=== PATIENT | female | born 1935 | race Caucasian/White ===

== ENCOUNTER 2022-02-18 19:44 | Inpatient (IN) | payer OTHER, MEDICAID ==
[~2022-02-18] VITALS: Ht 154.9 cm; Wt 49.0 kg
[2022-02-18 19:44] VITALS: BP_SYST 178
[2022-02-18 20:14] LABS: BASOPHILS % (AUTO) 0.4 % (0.0-2.0); EOSINOPHILS % (AUTO) 0.6 % (0.0-4.0); HEMATOCRIT 34.5 % (36-48); HEMOGLOBIN 11.6 g/dL (12.0-16.0); LYMPHOCYTES # (AUTO) 1.2 K/uL (1.0-5.5); LYMPHOCYTES % (AUTO) 20.4 % (20.5-51.5); MEAN CORPUSCULAR HEMOGLOBIN 30 pg (27-31); MEAN CORPUSCULAR HGB CONC 34 % (32-36); MEAN CORPUSCULAR VOLUME 90 fL (79.0-98.0); MONOCYTES # (AUTO) 0.6 K/uL (0.0-1.0); MONOCYTES % (AUTO) 10.2 % (1.7-9.3); NEUTROPHILS # (AUTO) 3.9 K/uL (1.8-7.7); NEUTROPHILS % (AUTO) 68.4 % (40.0-70.0); PLATELET COUNT (AUTO) 222 K/uL (130-430); RED BLOOD CELL COUNT(AUTO) 3.83 MIL/uL (4.2-6.2); RED CELL DISTRIBUTION WIDTH 12.5 % (9.0-15.0); WHITE BLOOD COUNT (AUTO) 5.7 K/uL (4.8-10.8)
[2022-02-18 20:22] LABS: INR 1.1 (0.8-1.2); PROTHROMBIN TIME 11.4 SECS (9.5-12.5)
[2022-02-18 20:33] LABS: ANION GAP 7 (5-15); CALCIUM 7.7 mg/dL (8.4-11.0); CHLORIDE 107 mmol/L (98-107); CREATININE 0.81 mg/dL (0.55-1.30); GLUCOSE 107 mg/dL (70-99); POTASSIUM 3.9 mmol/L (3.5-5.1); SODIUM SERUM 140 mmol/L (136-145); UREA NITROGEN, BLOOD 12 mg/dL (8-21)
[2022-02-18 20:41] LABS: ALANINE AMINOTRANSFERASE 18 U/L (12-78); ALBUMIN 2.2 g/dL (3.4-4.8); ASPARTATE AMINOTRANSFERASE 28 U/L (10-37); TOTAL BILIRUBIN 0.5 mg/dL (0.0-1.0)
[2022-02-18 21:10] LABS: BILIRUBIN,URINE NEGATIVE (NEGATIVE); CLARITY/URINE CLEAR (CLEAR); COLOR,URINE YELLOW (YELLOW); GLUCOSE,URINE NEGATIVE (NEGATIVE); KETONES,URINE NEGATIVE (NEGATIVE); LEUKOCYTE ESTERASE ,URINE NEGATIVE (NEGATIVE); NITRITE, URINE NEGATIVE (NEGATIVE); PROTEIN URINE NEGATIVE (NEGATIVE)
[2022-02-18 21:16] LABS: BLOOD, URINE TRACE (NEGATIVE)
[2022-02-18 21:17] LABS: BACTERIA,URINE FEW /HPF (None Seen); MUCUS,URINE 1+ /LPF (None Seen); RBC,URINE 0-3 /HPF (0-3); WBC,URINE 0-3 /HPF (0-3)
[2022-02-18 21:20] LABS: BARBITURATE, URINE NEGATIVE (NEG <=200); BENZODIAZEPINE, URINE NEGATIVE (NEG <=150); CANNABINOID, URINE NEGATIVE (NEG <=50); COCAINE, URINE NEGATIVE (NEG <=150); METHAMPHETAMINES SCREEN,URINE NEGATIVE (NEG <=500); OPIATE, URINE NEGATIVE (NEG <=100); PHENCYCLIDINE SCREEN,URINE NEGATIVE (NEG <=25); UR TRICYCLIC ANTIDEPRESSANTS NEGATIVE (NEG <=300); URINE AMPHETAMINE NEGATIVE (NEG <=500); URINE METHADONE NEGATIVE (NEG <=200); URINE OXYCODONE SCREEN NEGATIVE (NEG <=100); URINE PROPOXYPHENE SCREEN NEGATIVE (NEG <=300)
[2022-02-18] MEDS ORDERED: NACL 0.9% 1,000 ML IV ONE (21:45)
[2022-02-18] MEDS ORDERED: *LOVENOX 1MG/KG Q12H/PHARMACY XX ONE (23:30)
[2022-02-18] MEDS ORDERED: ENOXAPARIN SODIUM 60 MG/0.6 ML SYRINGE SUBCUT SCH (23:45)
[2022-02-19] VITALS (29 sets, daily range): BP systolic 106–164
[2022-02-19 00:55] LABS: ANION GAP 10 (5-15); CHLORIDE 108 mmol/L (98-107); CREATININE 0.67 mg/dL (0.55-1.30); GLUCOSE 104 mg/dL (70-99); POTASSIUM 3.9 mmol/L (3.5-5.1); SODIUM SERUM 142 mmol/L (136-145); UREA NITROGEN, BLOOD 10 mg/dL (8-21)
[2022-02-19 01:12] LABS: FREE T4 (FREE THYROXINE) 1.9 ng/dl (0.8-1.5); THYROID STIMULATING HORMONE 0.01 uIu/mL (0.36-3.74)
[2022-02-19 05:50] LABS: BASOPHILS % (AUTO) 0.7 % (0.0-2.0); EOSINOPHILS # (AUTO) 0.1 K/uL (0.0-0.4); EOSINOPHILS % (AUTO) 0.9 % (0.0-4.0); HEMOGLOBIN 10.7 g/dL (12.0-16.0); LYMPHOCYTES % (AUTO) 14.1 % (20.5-51.5); MEAN CORPUSCULAR HEMOGLOBIN 31 pg (27-31); MEAN CORPUSCULAR HGB CONC 35 % (32-36); MEAN CORPUSCULAR VOLUME 90 fL (79.0-98.0); MONOCYTES # (AUTO) 0.6 K/uL (0.0-1.0); MONOCYTES % (AUTO) 9.1 % (1.7-9.3); NEUTROPHILS # (AUTO) 5.1 K/uL (1.8-7.7); NEUTROPHILS % (AUTO) 75.2 % (40.0-70.0); PLATELET COUNT (AUTO) 239 K/uL (130-430); RED BLOOD CELL COUNT(AUTO) 3.44 MIL/uL (4.2-6.2); RED CELL DISTRIBUTION WIDTH 12.7 % (9.0-15.0); WHITE BLOOD COUNT (AUTO) 6.8 K/uL (4.8-10.8)
[2022-02-19] MEDS ORDERED: PANTOPRAZOLE SODIUM 40 MG/VIAL (PROTONIX) IVP ONE (10:00)
[2022-02-19] MEDS: NACL 0.9% 1,000 ML IV SCH ×2 (10:05→20:32)
[2022-02-19] MEDS: ASPIRIN 81 MG TABLET(ECOTRIN) PO SCH (10:05)
[2022-02-19] MEDS: ATORVASTATIN 20 MG TABLET PO SCH (10:06)
[2022-02-19] MEDS ORDERED: LORazepam 2 MG/ML VIAL IVP ONE (11:00)
[2022-02-19] MEDS: ENOXAPARIN SODIUM 30 MG/0.3 ML SYRINGE SUBCUT SCH (21:49)
[2022-02-20] VITALS (17 sets, daily range): BP systolic 125–160
[2022-02-20] MEDS: NACL 0.9% 1,000 ML IV SCH (03:38)
[2022-02-20 06:13] LABS: BASOPHILS # (AUTO) 0.1 K/uL (0.0-0.2); BASOPHILS % (AUTO) 0.9 % (0.0-2.0); EOSINOPHILS # (AUTO) 0.1 K/uL (0.0-0.4); EOSINOPHILS % (AUTO) 1.3 % (0.0-4.0); HEMOGLOBIN 10.7 g/dL (12.0-16.0); LYMPHOCYTES # (AUTO) 1.2 K/uL (1.0-5.5); LYMPHOCYTES % (AUTO) 17.1 % (20.5-51.5); MEAN CORPUSCULAR HEMOGLOBIN 31 pg (27-31); MEAN CORPUSCULAR HGB CONC 34 % (32-36); MEAN CORPUSCULAR VOLUME 92 fL (79.0-98.0); MONOCYTES # (AUTO) 0.7 K/uL (0.0-1.0); MONOCYTES % (AUTO) 10.6 % (1.7-9.3); NEUTROPHILS # (AUTO) 4.8 K/uL (1.8-7.7); NEUTROPHILS % (AUTO) 70.1 % (40.0-70.0); PLATELET COUNT (AUTO) 247 K/uL (130-430); RED BLOOD CELL COUNT(AUTO) 3.49 MIL/uL (4.2-6.2); RED CELL DISTRIBUTION WIDTH 12.5 % (9.0-15.0); WHITE BLOOD COUNT (AUTO) 6.9 K/uL (4.8-10.8)
[2022-02-20 06:30] LABS: ANION GAP 11 (5-15); CALCIUM 7.4 mg/dL (8.4-11.0); CHLORIDE 108 mmol/L (98-107); CREATININE 0.64 mg/dL (0.55-1.30); GLUCOSE 69 mg/dL (70-99); POTASSIUM 3.8 mmol/L (3.5-5.1); SODIUM SERUM 141 mmol/L (136-145); UREA NITROGEN, BLOOD 10 mg/dL (8-21)
[2022-02-20 06:53] LABS: ALANINE AMINOTRANSFERASE 18 U/L (12-78); ASPARTATE AMINOTRANSFERASE 31 U/L (10-37); THYROID STIMULATING HORMONE 0.01 uIu/mL (0.36-3.74); TOTAL BILIRUBIN 0.4 mg/dL (0.0-1.0)
[2022-02-20 09:07] LABS: CHOLESTEROL 88 mg/dL (<200); HDL CHOLESTEROL 29 mg/dL (>55); LDL CHOLESTEROL 52 mg/dL (<100); TRIGLYCERIDES 63 mg/dL (30-150)
[2022-02-20] MEDS: ATORVASTATIN 20 MG TABLET PO SCH (09:11)
[2022-02-20] MEDS: ASPIRIN 81 MG TABLET(ECOTRIN) PO SCH (09:11)
[2022-02-20] MEDS: PANTOPRAZOLE SODIUM 40 MG/VIAL (PROTONIX) IVP SCH (09:11)
[2022-02-20] MEDS: D5W 1,000 ML IV SCH ×2 (10:05→20:30)
[2022-02-20] MEDS: ENOXAPARIN SODIUM 30 MG/0.3 ML SYRINGE SUBCUT SCH (20:30)
[2022-02-21] MEDS: D5W 1,000 ML IV SCH (07:05)
[2022-02-21 07:51] VITALS: BP_SYST 118
[2022-02-21] MEDS: D5/0.45 NS 1,000 ML IV SCH ×2 (08:45→16:36)
[2022-02-21] MEDS: ATORVASTATIN 20 MG TABLET PO SCH (09:00)
[2022-02-21] MEDS: ASPIRIN 81 MG TABLET(ECOTRIN) PO SCH (09:00)
[2022-02-21 10:24] LABS: INR 1.3 (0.8-1.2)
[2022-02-21] MEDS: LEVOTHYROXINE SODIUM 0.1 MG VIAL IVP SCH (12:24)
[2022-02-21] MEDS: PANTOPRAZOLE SODIUM 40 MG/VIAL (PROTONIX) IVP SCH (12:24)
[2022-02-21 12:51] VITALS: BP_SYST 132
[2022-02-21] MEDS ORDERED: CHOLECALCIFEROL (VITAMIN D3) 5,000 UNIT TABLET PO ONE (13:15)
[2022-02-21] MEDS ORDERED: ASCORBIC ACID 500 MG TABLET PO ONE (13:15)
[2022-02-21] MEDS ORDERED: cefTRIAXone 1 GM in D5W 50 ML IV ONE (14:00)
[2022-02-21] MEDS: DEXAMETHASONE SOD PHOSPHATE 10 MG/ML VIAL IVP SCH (14:28)
[2022-02-21] MEDS ORDERED: AZITHROMYCIN 500 MG in NS 250 ML IV ONE (15:00)
[2022-02-21 16:14] VITALS: BP_SYST 123
[2022-02-21] MEDS ORDERED: DEXTROSE 50% JECT 50 ML DISP.SYRIN IVP PRN (19:15)
[2022-02-21] MEDS ORDERED: *TPN PER PHARMACY XX PRN (19:15)
[2022-02-21 20:01] VITALS: BP_SYST 149
[2022-02-21] MEDS: ENOXAPARIN SODIUM 30 MG/0.3 ML SYRINGE SUBCUT SCH (21:47)
[2022-02-21] MEDS: INSULIN REGULAR, HUMAN 100 UNITS/ML, 10 ML VIAL (humuLIN R) SUBCUT PRN (21:50)
[2022-02-22 00:43] VITALS: BP_SYST 123
[2022-02-22] MEDS: D5/0.45 NS 1,000 ML IV SCH ×2 (08:14→17:11)
[2022-02-22] MEDS: ASCORBIC ACID 500 MG TABLET PO SCH (08:17)
[2022-02-22] MEDS: CHOLECALCIFEROL (VITAMIN D3) 5,000 UNIT TABLET PO SCH (08:17)
[2022-02-22] MEDS: ASPIRIN 81 MG TABLET(ECOTRIN) PO SCH (08:17)
[2022-02-22] MEDS: ATORVASTATIN 20 MG TABLET PO SCH (08:17)
[2022-02-22 08:22] LABS: BASOPHILS % (AUTO) 0.1 % (0.0-2.0); HEMATOCRIT 31.3 % (36-48); HEMOGLOBIN 10.8 g/dL (12.0-16.0); LYMPHOCYTES # (AUTO) 0.7 K/uL (1.0-5.5); LYMPHOCYTES % (AUTO) 8.8 % (20.5-51.5); MEAN CORPUSCULAR HEMOGLOBIN 31 pg (27-31); MEAN CORPUSCULAR HGB CONC 35 % (32-36); MEAN CORPUSCULAR VOLUME 90 fL (79.0-98.0); MONOCYTES # (AUTO) 0.6 K/uL (0.0-1.0); MONOCYTES % (AUTO) 7.9 % (1.7-9.3); NEUTROPHILS # (AUTO) 6.8 K/uL (1.8-7.7); NEUTROPHILS % (AUTO) 83.2 % (40.0-70.0); PLATELET COUNT (AUTO) 212 K/uL (130-430); RED BLOOD CELL COUNT(AUTO) 3.47 MIL/uL (4.2-6.2); RED CELL DISTRIBUTION WIDTH 12.5 % (9.0-15.0); WHITE BLOOD COUNT (AUTO) 8.2 K/uL (4.8-10.8)
[2022-02-22 08:36] LABS: ANION GAP 8 (5-15); CALCIUM 8.2 mg/dL (8.4-11.0); CHLORIDE 110 mmol/L (98-107); CREATININE 0.59 mg/dL (0.55-1.30); GLUCOSE 116 mg/dL (70-99); POTASSIUM 3.5 mmol/L (3.5-5.1); SODIUM SERUM 142 mmol/L (136-145); UREA NITROGEN, BLOOD 9 mg/dL (8-21)
[2022-02-22 08:43] VITALS: BP_SYST 142
[2022-02-22 08:48] LABS: ALANINE AMINOTRANSFERASE 24 U/L (12-78); ALBUMIN 1.9 g/dL (3.4-4.8); ASPARTATE AMINOTRANSFERASE 35 U/L (10-37); PHOSPHORUS 3.4 mg/dL (2.7-4.5); TOTAL BILIRUBIN 0.4 mg/dL (0.0-1.0)
[2022-02-22] MEDS: LEVOTHYROXINE SODIUM 0.1 MG VIAL IVP SCH (09:05)
[2022-02-22] MEDS: cefTRIAXone 1 GM in D5W 50 ML IV SCH (09:05)
[2022-02-22] MEDS: PANTOPRAZOLE SODIUM 40 MG/VIAL (PROTONIX) IVP SCH (09:05)
[2022-02-22 09:30] LABS: TRIGLYCERIDES 61 mg/dL (30-150)
[2022-02-22] MEDS: AZITHROMYCIN 500 MG in NS 250 ML IV SCH (10:21)
[2022-02-22 12:35] VITALS: BP_SYST 132
[2022-02-22] MEDS: DEXAMETHASONE SOD PHOSPHATE 10 MG/ML VIAL IVP SCH (13:16)
[2022-02-22 16:12] VITALS: BP_SYST 138
[2022-02-22] MEDS: INSULIN REGULAR, HUMAN 100 UNITS/ML, 10 ML VIAL (humuLIN R) SUBCUT PRN (17:10)
[2022-02-22 19:40] VITALS: BP_SYST 112
[2022-02-22] MEDS: ENOXAPARIN SODIUM 30 MG/0.3 ML SYRINGE SUBCUT SCH (20:48)
[2022-02-22] MEDS ORDERED: TPN PERIPHERAL IV SCH ×7 (21:00)
[2022-02-22] MEDS ORDERED: [UNRECOGNIZED DRUG - OTHER] IV SCH ×7 (21:00)
[2022-02-22] MEDS ORDERED: POTASSIUM ACETATE IV SCH ×7 (21:00)
[2022-02-22] MEDS ORDERED: SODIUM ACETATE IV SCH ×7 (21:00)
[2022-02-22] MEDS ORDERED: MVI IV SCH ×7 (21:00)
[2022-02-22] MEDS: FAT EMULSIONS 250 ML IV SCH (23:39)
[2022-02-23] VITALS: BP_SYST 145
[2022-02-23] MEDS: D5/0.45 NS 1,000 ML IV SCH ×3 (06:30→20:45)
[2022-02-23 08:17] LABS: ALANINE AMINOTRANSFERASE 16 U/L (12-78); ALBUMIN 1.7 g/dL (3.4-4.8); ANION GAP 8 (5-15); ASPARTATE AMINOTRANSFERASE 27 U/L (10-37); CALCIUM 7.5 mg/dL (8.4-11.0); CHLORIDE 109 mmol/L (98-107); GLUCOSE 112 mg/dL (70-99); PHOSPHORUS 2.8 mg/dL (2.7-4.5); SODIUM SERUM 140 mmol/L (136-145); TOTAL BILIRUBIN 0.2 mg/dL (0.0-1.0); UREA NITROGEN, BLOOD 12 mg/dL (8-21)
[2022-02-23] MEDS: ASCORBIC ACID 500 MG TABLET PO SCH (09:04)
[2022-02-23] MEDS: CHOLECALCIFEROL (VITAMIN D3) 5,000 UNIT TABLET PO SCH (09:05)
[2022-02-23] MEDS: ATORVASTATIN 20 MG TABLET PO SCH (09:05)
[2022-02-23] MEDS: ASPIRIN 81 MG TABLET(ECOTRIN) PO SCH (09:05)
[2022-02-23] MEDS: PANTOPRAZOLE SODIUM 40 MG/VIAL (PROTONIX) IVP SCH (09:05)
[2022-02-23] MEDS: LEVOTHYROXINE SODIUM 0.1 MG VIAL IVP SCH (09:06)
[2022-02-23] MEDS: cefTRIAXone 1 GM in D5W 50 ML IV SCH (09:07)
[2022-02-23 09:08] LABS: C-REACTIVE PROTEIN QUANT 3.7 mg/dL (0-0.5)
[2022-02-23 09:35] VITALS: BP_SYST 125
[2022-02-23] MEDS ORDERED: POTASSIUM CHLORIDE 40 MEQ in NS 250 ML IV ONE ×2 (11:30→12:30)
[2022-02-23] MEDS: AZITHROMYCIN 500 MG in NS 250 ML IV SCH (11:33)
[2022-02-23 12:05] VITALS: BP_SYST 133
[2022-02-23 12:34] VITALS: BP_SYST 133
[2022-02-23] MEDS: DEXAMETHASONE SOD PHOSPHATE 10 MG/ML VIAL IVP SCH (12:41)
[2022-02-23 16:20] VITALS: BP_SYST 126
[2022-02-23 20:10] VITALS: BP_SYST 150
[2022-02-23] MEDS ORDERED: POTASSIUM ACETATE IV SCH ×7 (21:00)
[2022-02-23] MEDS ORDERED: TPN PERIPHERAL IV SCH ×7 (21:00)
[2022-02-23] MEDS ORDERED: SODIUM ACETATE IV SCH ×7 (21:00)
[2022-02-23] MEDS ORDERED: MVI IV SCH ×7 (21:00)
[2022-02-23] MEDS ORDERED: [UNRECOGNIZED DRUG - OTHER] IV SCH ×7 (21:00)
[2022-02-23] MEDS: ENOXAPARIN SODIUM 30 MG/0.3 ML SYRINGE SUBCUT SCH (21:37)
[2022-02-23] MEDS: FAT EMULSIONS 250 ML IV SCH (21:40)
[2022-02-24] VITALS (7 sets, daily range): BP systolic 140–148
[2022-02-24 06:45] LABS: BASOPHILS % (AUTO) 0.2 % (0.0-2.0); HEMATOCRIT 29.8 % (36-48); HEMOGLOBIN 10.2 g/dL (12.0-16.0); LYMPHOCYTES # (AUTO) 0.9 K/uL (1.0-5.5); LYMPHOCYTES % (AUTO) 9.9 % (20.5-51.5); MEAN CORPUSCULAR HEMOGLOBIN 31 pg (27-31); MEAN CORPUSCULAR HGB CONC 34 % (32-36); MEAN CORPUSCULAR VOLUME 90 fL (79.0-98.0); MONOCYTES # (AUTO) 0.6 K/uL (0.0-1.0); MONOCYTES % (AUTO) 6.5 % (1.7-9.3); NEUTROPHILS # (AUTO) 7.4 K/uL (1.8-7.7); NEUTROPHILS % (AUTO) 83.4 % (40.0-70.0); PLATELET COUNT (AUTO) 245 K/uL (130-430); RED BLOOD CELL COUNT(AUTO) 3.34 MIL/uL (4.2-6.2); RED CELL DISTRIBUTION WIDTH 12.5 % (9.0-15.0); WHITE BLOOD COUNT (AUTO) 8.9 K/uL (4.8-10.8)
[2022-02-24 07:06] LABS: ALANINE AMINOTRANSFERASE 23 U/L (12-78); ALBUMIN 1.9 g/dL (3.4-4.8); ANION GAP 5 (5-15); ASPARTATE AMINOTRANSFERASE 27 U/L (10-37); CALCIUM 7.3 mg/dL (8.4-11.0); CHLORIDE 110 mmol/L (98-107); GLUCOSE 107 mg/dL (70-99); PHOSPHORUS 2.4 mg/dL (2.7-4.5); SODIUM SERUM 140 mmol/L (136-145); TOTAL BILIRUBIN 0.2 mg/dL (0.0-1.0); UREA NITROGEN, BLOOD 9 mg/dL (8-21)
[2022-02-24] MEDS: PANTOPRAZOLE SODIUM 40 MG/VIAL (PROTONIX) IVP SCH (08:58)
[2022-02-24] MEDS: LEVOTHYROXINE SODIUM 0.1 MG VIAL IVP SCH (08:58)
[2022-02-24] MEDS: cefTRIAXone 1 GM in D5W 50 ML IV SCH (08:59)
[2022-02-24] MEDS: CHOLECALCIFEROL (VITAMIN D3) 5,000 UNIT TABLET PO SCH (09:00)
[2022-02-24] MEDS: ASCORBIC ACID 500 MG TABLET PO SCH (09:00)
[2022-02-24] MEDS: ATORVASTATIN 20 MG TABLET PO SCH (09:00)
[2022-02-24] MEDS: ASPIRIN 81 MG TABLET(ECOTRIN) PO SCH (09:00)
[2022-02-24] MEDS ORDERED: COMMUNICATION ORDER XX ONE (11:00)
[2022-02-24] MEDS: AZITHROMYCIN 500 MG in NS 250 ML IV SCH (11:41)
[2022-02-24] MEDS: DEXAMETHASONE SOD PHOSPHATE 10 MG/ML VIAL IVP SCH (16:21)
[2022-02-24] MEDS: D5/0.45 NS 1,000 ML IV SCH ×2 (16:22→20:30)
[2022-02-24] MEDS ORDERED: ATORVASTATIN 20 MG TABLET NG ONE (17:00)
[2022-02-24] MEDS ORDERED: ASPIRIN 81 MG TAB.CHEW NG ONE (17:00)
[2022-02-24] MEDS: FAT EMULSIONS 250 ML IV SCH (20:50)
[2022-02-24] MEDS ORDERED: MVI IV SCH ×8 (21:00)
[2022-02-24] MEDS ORDERED: TPN PERIPHERAL IV SCH ×8 (21:00)
[2022-02-24] MEDS ORDERED: SODIUM ACETATE IV SCH ×8 (21:00)
[2022-02-24] MEDS ORDERED: POTASSIUM ACETATE IV SCH ×8 (21:00)
[2022-02-24] MEDS ORDERED: [UNRECOGNIZED DRUG - OTHER] IV SCH ×8 (21:00)
[2022-02-24] MEDS: ENOXAPARIN SODIUM 30 MG/0.3 ML SYRINGE SUBCUT SCH (21:38)
[2022-02-25 00:36] VITALS: BP_SYST 142
[2022-02-25] MEDS: D5/0.45 NS 1,000 ML IV SCH ×3 (02:45→21:58)
[2022-02-25] MEDS: LORazepam 2 MG/ML VIAL IVP PRN (05:15)
[2022-02-25 07:24] LABS: ALANINE AMINOTRANSFERASE 22 U/L (12-78); ANION GAP 5 (5-15); ASPARTATE AMINOTRANSFERASE 33 U/L (10-37); CHLORIDE 109 mmol/L (98-107); CREATININE 0.59 mg/dL (0.55-1.30); GLUCOSE 78 mg/dL (70-99); PHOSPHORUS 2.5 mg/dL (2.7-4.5); POTASSIUM 3.9 mmol/L (3.5-5.1); SODIUM SERUM 140 mmol/L (136-145); TOTAL BILIRUBIN 0.3 mg/dL (0.0-1.0); UREA NITROGEN, BLOOD 11 mg/dL (8-21)
[2022-02-25] MEDS: PANTOPRAZOLE SODIUM 40 MG/VIAL (PROTONIX) IVP SCH (09:00)
[2022-02-25] MEDS: ATORVASTATIN 20 MG TABLET NG SCH (09:00)
[2022-02-25] MEDS: LEVOTHYROXINE SODIUM 0.1 MG VIAL IVP SCH (09:00)
[2022-02-25] MEDS: cefTRIAXone 1 GM in D5W 50 ML IV SCH (09:00)
[2022-02-25] MEDS: ASPIRIN 81 MG TAB.CHEW NG SCH (09:00)
[2022-02-25] MEDS: AZITHROMYCIN 500 MG in NS 250 ML IV SCH (10:00)
[2022-02-25] MEDS ORDERED: DECADRON 4 MG TABLET PO ONE (11:00)
[2022-02-25 13:13] VITALS: BP_SYST 145
[2022-02-25 16:21] VITALS: BP_SYST 144
[2022-02-25] MEDS: COMMUNICATION ORDER XX SCH (16:21)
[2022-02-25 20:00] VITALS: BP_SYST 176
[2022-02-25] MEDS ORDERED: TPN PERIPHERAL IV SCH ×9 (21:00)
[2022-02-25] MEDS ORDERED: SODIUM ACETATE IV SCH ×9 (21:00)
[2022-02-25] MEDS ORDERED: [UNRECOGNIZED DRUG - OTHER] IV SCH ×9 (21:00)
[2022-02-25] MEDS ORDERED: POTASSIUM ACETATE IV SCH ×9 (21:00)
[2022-02-25] MEDS: ENOXAPARIN SODIUM 30 MG/0.3 ML SYRINGE SUBCUT SCH (21:57)
[2022-02-25] MEDS: FAT EMULSIONS 250 ML IV SCH (23:35)
[2022-02-26 01:01] VITALS: BP_SYST 156
[2022-02-26] MEDS: LORazepam 2 MG/ML VIAL IVP PRN (04:56)
[2022-02-26 06:41] LABS: ALANINE AMINOTRANSFERASE 26 U/L (12-78); ALBUMIN 2.2 g/dL (3.4-4.8); ANION GAP 10 (5-15); ASPARTATE AMINOTRANSFERASE 32 U/L (10-37); CHLORIDE 103 mmol/L (98-107); GLUCOSE 108 mg/dL (70-99); PHOSPHORUS 2.8 mg/dL (2.7-4.5); POTASSIUM 3.2 mmol/L (3.5-5.1); SODIUM SERUM 138 mmol/L (136-145); TOTAL BILIRUBIN 0.2 mg/dL (0.0-1.0); UREA NITROGEN, BLOOD 10 mg/dL (8-21)
[2022-02-26] MEDS: D5/0.45 NS 1,000 ML IV SCH ×2 (08:45→20:12)
[2022-02-26] MEDS: CHOLECALCIFEROL (VITAMIN D3) 5,000 UNIT TABLET NG SCH (09:00)
[2022-02-26] MEDS: ASCORBIC ACID 500 MG TABLET NG SCH (09:00)
[2022-02-26] MEDS: ASPIRIN 81 MG TAB.CHEW NG SCH (09:00)
[2022-02-26] MEDS: ATORVASTATIN 20 MG TABLET NG SCH (09:00)
[2022-02-26] MEDS: cefTRIAXone 1 GM in D5W 50 ML IV SCH (09:00)
[2022-02-26] MEDS: COMMUNICATION ORDER XX SCH (09:00)
[2022-02-26] MEDS: PANTOPRAZOLE SODIUM 40 MG/VIAL (PROTONIX) IVP SCH (09:00)
[2022-02-26] MEDS: LEVOTHYROXINE SODIUM 0.1 MG VIAL IVP SCH (09:00)
[2022-02-26] MEDS: DECADRON 4 MG TABLET NG SCH (10:00)
[2022-02-26 11:31] VITALS: BP_SYST 147
[2022-02-26 16:02] VITALS: BP_SYST 144
[2022-02-26 19:00] VITALS: BP_SYST 143
[2022-02-26 20:00] VITALS: BP_SYST 143
[2022-02-26] MEDS ORDERED: POTASSIUM ACETATE IV SCH ×10 (21:00)
[2022-02-26] MEDS ORDERED: SODIUM ACETATE IV SCH ×10 (21:00)
[2022-02-26] MEDS ORDERED: [UNRECOGNIZED DRUG - OTHER] IV SCH ×10 (21:00)
[2022-02-26] MEDS ORDERED: TPN CENTRAL IV SCH ×10 (21:00)
[2022-02-26] MEDS: ENOXAPARIN SODIUM 30 MG/0.3 ML SYRINGE SUBCUT SCH (21:42)
[2022-02-26] MEDS: FAT EMULSIONS 250 ML IV SCH (21:48)
[2022-02-26] MEDS: INSULIN REGULAR, HUMAN 100 UNITS/ML, 10 ML VIAL (humuLIN R) SUBCUT PRN (22:17)
[2022-02-26] MEDS: DOXYCYCLINE HYCLATE 100 MG in D5W 100 ML IV SCH (22:21)
[2022-02-27] VITALS: BP_SYST 129; BP_SYST 146
[2022-02-27 07:13] LABS: ALANINE AMINOTRANSFERASE 24 U/L (12-78); ANION GAP 6 (5-15); ASPARTATE AMINOTRANSFERASE 27 U/L (10-37); CALCIUM 7.9 mg/dL (8.4-11.0); CHLORIDE 106 mmol/L (98-107); CREATININE 0.42 mg/dL (0.55-1.30); GLUCOSE 111 mg/dL (70-99); PHOSPHORUS 1.8 mg/dL (2.7-4.5); SODIUM SERUM 136 mmol/L (136-145); TOTAL BILIRUBIN 0.5 mg/dL (0.0-1.0); UREA NITROGEN, BLOOD 9 mg/dL (8-21)
[2022-02-27] MEDS: D5/0.45 NS 1,000 ML IV SCH ×2 (08:00→14:45)
[2022-02-27 08:03] VITALS: BP_SYST 109
[2022-02-27] MEDS: cefTRIAXone 1 GM in D5W 50 ML IV SCH (08:53)
[2022-02-27] MEDS: ATORVASTATIN 20 MG TABLET NG SCH (08:53)
[2022-02-27] MEDS: CHOLECALCIFEROL (VITAMIN D3) 5,000 UNIT TABLET NG SCH (08:54)
[2022-02-27] MEDS: ASPIRIN 81 MG TAB.CHEW NG SCH (08:54)
[2022-02-27] MEDS: ASCORBIC ACID 500 MG TABLET NG SCH (08:54)
[2022-02-27] MEDS: DOXYCYCLINE HYCLATE 100 MG in D5W 100 ML IV SCH ×2 (08:55→20:43)
[2022-02-27] MEDS: PANTOPRAZOLE SODIUM 40 MG/VIAL (PROTONIX) IVP SCH (08:57)
[2022-02-27] MEDS: LEVOTHYROXINE SODIUM 0.1 MG VIAL IVP SCH (09:08)
[2022-02-27] MEDS: COMMUNICATION ORDER XX SCH (09:09)
[2022-02-27] MEDS: DECADRON 4 MG TABLET NG SCH (12:18)
[2022-02-27 13:14] VITALS: BP_SYST 145
[2022-02-27] MEDS: INSULIN REGULAR, HUMAN 100 UNITS/ML, 10 ML VIAL (humuLIN R) SUBCUT PRN (17:38)
[2022-02-27 17:51] VITALS: BP_SYST 115
[2022-02-27] MEDS: FAT EMULSIONS 250 ML IV SCH (20:42)
[2022-02-27] MEDS: ENOXAPARIN SODIUM 30 MG/0.3 ML SYRINGE SUBCUT SCH (20:43)
[2022-02-27] MEDS ORDERED: [UNRECOGNIZED DRUG - OTHER] IV SCH ×9 (21:00)
[2022-02-27] MEDS ORDERED: SODIUM ACETATE IV SCH ×9 (21:00)
[2022-02-27] MEDS ORDERED: K PHOS IV SCH ×9 (21:00)
[2022-02-27] MEDS ORDERED: TPN CENTRAL IV SCH ×9 (21:00)
[2022-02-27] MEDS ORDERED: POTASSIUM ACETATE IV SCH ×9 (21:00)
[2022-02-28 00:43] VITALS: BP_SYST 118
[2022-02-28] MEDS: D5/0.45 NS 1,000 ML IV SCH ×2 (05:18→10:45)
[2022-02-28 06:10] LABS: BASOPHILS % (AUTO) 0.2 % (0.0-2.0); EOSINOPHILS % (AUTO) 0.3 % (0.0-4.0); HEMOGLOBIN 10.7 g/dL (12.0-16.0); LYMPHOCYTES # (AUTO) 1.4 K/uL (1.0-5.5); LYMPHOCYTES % (AUTO) 10.6 % (20.5-51.5); MEAN CORPUSCULAR HEMOGLOBIN 30 pg (27-31); MEAN CORPUSCULAR HGB CONC 33 % (32-36); MEAN CORPUSCULAR VOLUME 91 fL (79.0-98.0); MONOCYTES # (AUTO) 1.1 K/uL (0.0-1.0); NEUTROPHILS # (AUTO) 10.8 K/uL (1.8-7.7); NEUTROPHILS % (AUTO) 80.9 % (40.0-70.0); PLATELET COUNT (AUTO) 216 K/uL (130-430); RED BLOOD CELL COUNT(AUTO) 3.52 MIL/uL (4.2-6.2); RED CELL DISTRIBUTION WIDTH 12.7 % (9.0-15.0); WHITE BLOOD COUNT (AUTO) 13.4 K/uL (4.8-10.8)
[2022-02-28 06:30] LABS: ALANINE AMINOTRANSFERASE 25 U/L (12-78); ANION GAP 6 (5-15); ASPARTATE AMINOTRANSFERASE 29 U/L (10-37); CALCIUM 7.3 mg/dL (8.4-11.0); CHLORIDE 106 mmol/L (98-107); GLUCOSE 96 mg/dL (70-99); PHOSPHORUS 1.9 mg/dL (2.7-4.5); POTASSIUM 3.9 mmol/L (3.5-5.1); SODIUM SERUM 138 mmol/L (136-145); TOTAL BILIRUBIN 0.2 mg/dL (0.0-1.0); UREA NITROGEN, BLOOD 14 mg/dL (8-21)
[2022-02-28 08:02] VITALS: BP_SYST 139
[2022-02-28] MEDS: LEVOTHYROXINE SODIUM 0.1 MG VIAL IVP SCH (08:32)
[2022-02-28] MEDS: PANTOPRAZOLE SODIUM 40 MG/VIAL (PROTONIX) IVP SCH (08:32)
[2022-02-28] MEDS: cefTRIAXone 1 GM in D5W 50 ML IV SCH (08:33)
[2022-02-28] MEDS: ASPIRIN 81 MG TAB.CHEW NG SCH (08:33)
[2022-02-28] MEDS: DOXYCYCLINE HYCLATE 100 MG in D5W 100 ML IV SCH (08:33)
[2022-02-28] MEDS: CHOLECALCIFEROL (VITAMIN D3) 5,000 UNIT TABLET NG SCH (08:34)
[2022-02-28] MEDS: ATORVASTATIN 20 MG TABLET NG SCH (08:34)
[2022-02-28] MEDS: ASCORBIC ACID 500 MG TABLET NG SCH (08:34)
[2022-02-28] MEDS ORDERED: SIMETHICONE 40 MG/0.6 ML ML ONE (08:58)
[2022-02-28] MEDS ORDERED: MEPERIDINE 100 MG INJ. 100 MG/ML VIAL ONE (08:58)
[2022-02-28] MEDS ORDERED: MIDAZOLAM HCL 5 MG/5 ML VIAL ONE (08:59)
[2022-02-28] MEDS: DECADRON 4 MG TABLET NG SCH (10:00)
[2022-02-28 11:31] VITALS: BP_SYST 136
[2022-02-28 12:13] VITALS: BP_SYST 136
[2022-02-28] MEDS ORDERED: K PHOS IV SCH ×9 (21:00)
[2022-02-28] MEDS ORDERED: [UNRECOGNIZED DRUG - OTHER] IV SCH ×9 (21:00)
[2022-02-28] MEDS ORDERED: POTASSIUM ACETATE IV SCH ×9 (21:00)
[2022-02-28] MEDS ORDERED: SODIUM ACETATE IV SCH ×9 (21:00)
[2022-02-28] MEDS ORDERED: TPN CENTRAL IV SCH ×9 (21:00)
== END 2022-02-28 14:00 | DRG 64 ==
LOC: SED 19:44 → SIC 23:03 → STU 02-20 12:22
PROVIDERS: ADMIT General Practice; ATTEND General Practice
DX: I63.9 Cerebral infarction, unspecified (principal); U07.1 COVID-19; I21.4 Non-ST elevation (NSTEMI) myocardial infarction; E43 Unspecified severe protein-calorie malnutrition; G93.41 Metabolic encephalopathy; J12.82 Pneumonia due to coronavirus disease 2019; J69.0 Pneumonitis due to inhalation of food and vomit; J96.01 Acute respiratory failure with hypoxia; G81.91 Hemiplegia, unspecified affecting right dominant side; R47.01 Aphasia; E83.51 Hypocalcemia; D64.9 Anemia, unspecified; E03.9 Hypothyroidism, unspecified; F03.90 Unspecified dementia, unspecified severity, without behavioral disturbance, psychotic disturbance, mood disturbance, and anxiety; R13.10 Dysphagia, unspecified; I10 Essential (primary) hypertension; E87.6 Hypokalemia; R29.810 Facial weakness; R29.719 NIHSS score 19; Z86.73 Personal history of transient ischemic attack (TIA), and cerebral infarction without residual deficits; Z87.891 Personal history of nicotine dependence; I25.2 Old myocardial infarction; Z68.20 Body mass index [BMI] 20.0-20.9, adult
CPT/HCPCS: 36415; 70450-TC; 70496; 70498; 70551; 71045; 74018; 76376; 80048; 80053; 80061; 80307; 81000; 82728; 82962; 83605; 83735; 83880; 84100; 84439; 84443; 84478; 84484; 85025; 85379; 85610-TC; 85730-TC; 86140; 86886; 86900; 86901; 87081; 92610-GN; 93005; 93306; 96360; 97110-GP; 97112-GP; 97116-GP; 97163-GP; 97530-GP; 99291; C9113; G0378; J0456; J0696; J1100; J1650; J1815; J2060; J2175; J2250; J3475; J3480; J3490; J7050; J7060; J8540; Q9967; U0003